=== PATIENT | male | born 1970 | race Caucasian/White ===

== ENCOUNTER → 2016-10-14 | Outpatient (CLI) | payer BC ==
[2016-10-14 10:49] LABS: BASOPHILS # (AUTO) 0.02 10*3/UL; BASOPHILS % (AUTO) 0.2 % (0-1); EOSINOPHILS # (AUTO) 0.06 10*3/UL; EOSINOPHILS % (AUTO) 0.6 % (0-8); HEMOGLOBIN 16.2 g/dL (14.0-18.0); LYMPHOCYTES # (AUTO) 1.86 10*3/uL; MEAN CORPUSCULAR HEMOGLOBIN 29.9 PG (27-31); MEAN CORPUSCULAR HGB CONC 33.8 g/dL (33-37); MEAN CORPUSCULAR VOLUME 88.7 FL (80-90); MONOCYTES # (AUTO) 0.52 10*3/UL (0.3-0.8); MONOCYTES % (AUTO) 5.4 % (5-15); NEUTROPHILS # (AUTO) 7.18 10*3/UL; NEUTROPHILS % (AUTO) 74.3 % (50-80); RED BLOOD COUNT 5.41 10^6/uL (4.70-6.10)
[2016-10-14 10:57] LABS: PLATELET MORPHOLOGY COMMENT NORMAL MORPHOLOGY (NORM); RBC MORPHOLOGY COMMENT NORMAL MORPHOLOGY (NORM); WBC MORPHOLOGY COMMENT NORMAL MORPHOLOGY (NORM)
[2016-10-14 11:16] LABS: BLOOD UREA NITROGEN 20 mg/dL (7-22); C-REACTIVE PROTEIN 0.5 mg/dL (0.0-0.9); CALCIUM 9.9 mg/dL (8.7-10.7); EST GLOMERULAR FILTRATION > 60 (>60 ml/min/1.73m(2)); HDL CHOLESTEROL 39 mg/dL (40-150); SERUM ALBUMIN 4.8 g/dL (3.5-4.8)
[2016-10-14 11:21] LABS: CHOL/HDL RATIO 8.97 RATIO (0-4.0); SERUM CHOLESTEROL 350 mg/dL (120-200)
[2016-10-14 12:17] LABS: FREE T4 (FREE THYROXINE) 1.68 ng/dL (0.93-1.71)
== END ==
LOC: LAB 09:05
PROVIDERS: ATTEND Internal Medicine
DX: E78.4 Other hyperlipidemia (principal); E03.9 Hypothyroidism, unspecified
CPT/HCPCS: 36415; 80053; 80061; 84439; 84443; 85025; 86140

== ENCOUNTER → 2017-01-31 | Outpatient (CLI) | payer BC ==
[2017-01-31 09:49] LABS: FREE T4 (FREE THYROXINE) 0.95 ng/dL (0.93-1.71)
== END ==
LOC: LAB 07:30
PROVIDERS: ATTEND Internal Medicine
DX: E03.9 Hypothyroidism, unspecified (principal)
CPT/HCPCS: 36415; 84439; 84443